=== PATIENT | male | born 1975 | race African-American/Black ===

== ENCOUNTER 2021-10-01 20:40 | Inpatient (IN) | payer OTHER ==
[~2021-10-01] VITALS: Ht 175.3 cm; Wt 111.4 kg
[2021-10-01 22:16] LABS: Urine Bacteria NONE SEEN /hpf (None Seen); Urine Blood Negative /uL (Negative); Urine Specific Gravity 1.028 (1.001-1.035); Urine WBC <1 /hpf (0 - 3)
[2021-10-01 22:45] LABS: Magnesium 2.4 mg/dL (1.6-2.6)
[2021-10-01] MEDS ORDERED: fentaNYL CITRATE 100 MCG/2 ML VL IV ONE (23:00)
[2021-10-01] MEDS ORDERED: ONDANSETRON HCL 4 MG/2 ML VIAL IV ONE (23:00)
[2021-10-01 23:07] LABS: White Blood Cell 9.3 10^3/uL (4.4-10.8)
[2021-10-01 23:08] LABS: Basophils % (auto) 1.6 % (0.0-2.0); Eosinophils % (auto) 0.5 % (0.0-7.0); Lymphocytes % (auto) 8.2 % (10.0-50.0); Monocytes % (auto) 4.8 % (0.0-12.0); Neutrophils % (auto) 84.9 % (37.0-80.0)
[2021-10-01 23:09] LABS: Basophils # (auto) 0.2 10 ^3/uL (0-0.2); Eosinophils # (auto) 0.1 10 ^3/uL (0-0.8); Hematocrit 37.6 % (41.0-53.0); Hemoglobin 12.6 g/dL (13.5-17.5); Lymphocytes # (auto) 0.8 10 ^3/uL (0.4-5.4); Mean Corpuscular Volume 80.3 fL (80.0-100.0); Monocytes # (auto) 0.4 10 ^3/uL (0-1.3); Neutrophils # (auto) 7.8 10 ^3/uL (1.6-8.6); Red Blood Cells 4.68 10^6/uL (4.5-5.90)
[2021-10-01 23:10] LABS: Mean Corpuscular Hemoglobin 26.9 pg (28.0-32.0); Mean Corpuscular Hgb Conc. 33.5 g/dL (32.0-36.0); Red Cell Distribution Width 16.7 % (11.8-14.3)
[2021-10-02] MEDS ORDERED: DEXTROSE (50%) 50ML SYRG IV PRN ×2 (00:15→15:45)
[2021-10-02] MEDS ORDERED: ACETAMINOPHEN 325 MG TAB PO PRN (00:15)
[2021-10-02] MEDS ORDERED: ONDANSETRON HCL 4 MG/2 ML VIAL IV PRN (00:15)
[2021-10-02 00:29] LABS: BUN/Creatinine Ratio 9.1
[2021-10-02 00:30] LABS: Albumin 3.8 g/dL (3.4-5.0); Bilirubin, Total 1.2 mg/dL (0.2-1.0); Calcium 8.8 mg/dL (8.5-10.1); Total Protein 8.3 g/dL (6.4-8.2)
[2021-10-02 00:34] LABS: Potassium 5.7 mmol/L (3.5-5.1)
[2021-10-02] MEDS: HYDROcodone-ACET 5/325MG TAB PO PRN ×2 (00:34→17:25)
[2021-10-02] MEDS: SODIUM CHLORIDE 0.9% 1,000 ML IV SCH ×2 (00:34→08:03)
[2021-10-02] MEDS ORDERED: SODIUM BICARBONATE 8.4% INJ 50ML SYRINGE IV ONE (00:45)
[2021-10-02] MEDS ORDERED: SODIUM ZIRCONIUM CYCL 10 GM PAK PO ONE (00:45)
[2021-10-02] MEDS ORDERED: InsuLIN REG 1unit/0.01ml Soln (100units/ml) IV ONE (00:45)
[2021-10-02] MEDS ORDERED: MORPHINE SULFATE INJ 2 MG/ml SYRG IV PRN (01:15)
[2021-10-02] MEDS ORDERED: NITROGLYCERIN 0.4 MG SL TAB SL PRN (01:15)
[2021-10-02 04:21] VITALS: BP 143/85
[2021-10-02] MEDS: ACCU-CHEK COMFORT CURVE STRIP VI SCH ×4 (04:33→16:00)
[2021-10-02] MEDS: InsuLIN REG 1unit/0.01ml Soln (100units/ml) SC SCH ×4 (04:34→16:20)
[2021-10-02] MEDS: MORPHINE SULFATE INJ 2 MG/ml SYRG IV PRN ×2 (04:57→12:20)
[2021-10-02 08:00] VITALS: BP 122/77
[2021-10-02 09:12] LABS: Basophils # (auto) 0.1 10 ^3/uL (0-0.2); Basophils % (auto) 0.6 % (0.0-2.0); Eosinophils # (auto) 0 10 ^3/uL (0-0.8); Eosinophils % (auto) 0.1 % (0.0-7.0); Hematocrit 36.9 % (41.0-53.0); Hemoglobin 13.4 g/dL (13.5-17.5); Lymphocytes # (auto) 0.8 10 ^3/uL (0.4-5.4); Lymphocytes % (auto) 7.9 % (10.0-50.0); Mean Corpuscular Hemoglobin 28.7 pg (28.0-32.0); Mean Corpuscular Hgb Conc. 36.4 g/dL (32.0-36.0); Mean Corpuscular Volume 78.8 fL (80.0-100.0); Monocytes # (auto) 0.4 10 ^3/uL (0-1.3); Monocytes % (auto) 4.3 % (0.0-12.0); Neutrophils # (auto) 8.5 10 ^3/uL (1.6-8.6); Neutrophils % (auto) 87.1 % (37.0-80.0); Nucleated Red Blood Cells % 0.1 %; Red Blood Cells 4.68 10^6/uL (4.5-5.90); Red Cell Distribution Width 16.3 % (11.8-14.3); White Blood Cell 9.7 10^3/uL (4.4-10.8)
[2021-10-02 09:30] LABS: Albumin 3.4 g/dL (3.4-5.0); Calcium 8.5 mg/dL (8.5-10.1); Potassium 4.2 mmol/L (3.5-5.1)
[2021-10-02 09:35] LABS: Bilirubin, Total 1.5 mg/dL (0.2-1.0)
[2021-10-02 10:18] LABS: BUN/Creatinine Ratio 10.3
[2021-10-02 10:24] LABS: Total Protein 7.7 g/dL (6.4-8.2)
[2021-10-02 12:00] VITALS: BP 133/81
[2021-10-02] MEDS ORDERED: LACTATED RINGER'S 1,000 ML IV SCH (15:30)
[2021-10-02 16:00] VITALS: BP 126/81
[2021-10-02] MEDS: LACTATED RINGER'S 1,000 ML IV SCH ×2 (16:00→18:38)
[2021-10-02] MEDS: INSULIN LANTUS (GLARGINE) 1 /0.01ml (100units/ml) SC SCH (21:32)
[2021-10-02 22:00] VITALS: BP 144/65
[2021-10-03] MEDS: ACCU-CHEK COMFORT CURVE STRIP VI SCH ×5 (00:46→23:23)
[2021-10-03] MEDS: InsuLIN REG 1unit/0.01ml Soln (100units/ml) SC SCH ×5 (00:54→23:28)
[2021-10-03 04:00] VITALS: BP 106/68
[2021-10-03] MEDS: LACTATED RINGER'S 1,000 ML IV SCH ×5 (05:20→21:58)
[2021-10-03 05:42] LABS: Hematocrit 35.4 % (41.0-53.0); Hemoglobin 12.5 g/dL (13.5-17.5); Mean Corpuscular Hemoglobin 27.8 pg (28.0-32.0); Mean Corpuscular Hgb Conc. 35.4 g/dL (32.0-36.0); Mean Corpuscular Volume 78.5 fL (80.0-100.0); Red Blood Cells 4.51 10^6/uL (4.5-5.90); Red Cell Distribution Width 16.8 % (11.8-14.3); White Blood Cell 9.7 10^3/uL (4.4-10.8)
[2021-10-03 05:49] LABS: Albumin 3.2 g/dL (3.4-5.0); Calcium 9.2 mg/dL (8.5-10.1); Potassium 3.6 mmol/L (3.5-5.1)
[2021-10-03 05:54] LABS: Total Protein 7.4 g/dL (6.4-8.2)
[2021-10-03] MEDS: HYDROcodone-ACET 5/325MG TAB PO PRN ×2 (06:21→11:58)
[2021-10-03 06:26] LABS: Basophils % (manual) 0 (0.0-2.0); Blast Cells 0; Eosinophils % (manual) 0 (0-7); Myelocytes % 0; Promyelocytes % 0; Reactive Lymphocytes 0
[2021-10-03 08:00] VITALS: BP 124/74
[2021-10-03 09:00] VITALS: BP 124/74
[2021-10-03 13:00] VITALS: BP 105/51
[2021-10-03 13:05] LABS: Band Neutrophils % (manual) 4; Lymphocytes % (manual) 11 (10.0-50.0); Metamyelocytes % 1; Monocytes % (manual) 8 (0-12)
[2021-10-03] MEDS ORDERED: PANTOPRAZOLE 40 MG/10 ML VIAL INJ IV ONE (14:15)
[2021-10-03 17:00] VITALS: BP 130/81
[2021-10-03] MEDS: INSULIN LANTUS (GLARGINE) 1 /0.01ml (100units/ml) SC SCH (21:59)
[2021-10-03 22:00] VITALS: BP 122/78
[2021-10-04 05:00] VITALS: BP 115/69
[2021-10-04] MEDS: ACCU-CHEK COMFORT CURVE STRIP VI SCH ×4 (05:45→22:57)
[2021-10-04] MEDS: InsuLIN REG 1unit/0.01ml Soln (100units/ml) SC SCH ×4 (05:51→22:57)
[2021-10-04 06:03] LABS: Potassium 3.2 mmol/L (3.5-5.1)
[2021-10-04 06:10] LABS: BUN/Creatinine Ratio 9.1; Calcium 9.1 mg/dL (8.5-10.1)
[2021-10-04] MEDS: LACTATED RINGER'S 1,000 ML IV SCH ×3 (06:35→22:56)
[2021-10-04 08:20] VITALS: BP 99/62
[2021-10-04 09:00] VITALS: BP 99/62
[2021-10-04] MEDS: PANTOPRAZOLE 40 MG/10 ML VIAL INJ IV SCH (09:46)
[2021-10-04] MEDS: HYDROcodone-ACET 5/325MG TAB PO PRN (10:00)
[2021-10-04] MEDS ORDERED: POTASSIUM CHLORIDE 40 MEQ, LIDOCAINE 1% (LOCAL ANESTH.) 4 ML in SODIUM CHL 0.9% 250 ML IV ONE (12:30)
[2021-10-04] MEDS ORDERED: PANTOPRAZOLE 40 MG/10 ML VIAL INJ IV ONE (12:30)
[2021-10-04] MEDS ORDERED: KETOROLAC TROMETH 30 MG/ML 1ML VIAL IV ONE (12:30)
[2021-10-04 13:00] VITALS: BP 115/70
[2021-10-04 16:59] VITALS: BP 123/89
[2021-10-04 22:00] VITALS: BP 143/87
[2021-10-04] MEDS: INSULIN LANTUS (GLARGINE) 1 /0.01ml (100units/ml) SC SCH (22:57)
[2021-10-05] MEDS: HYDROcodone-ACET 5/325MG TAB PO PRN (02:29)
[2021-10-05 05:00] VITALS: BP 101/60
[2021-10-05] MEDS: ACCU-CHEK COMFORT CURVE STRIP VI SCH ×2 (06:36→11:10)
[2021-10-05 06:37] LABS: Chloride 105 mmol/L (98-107); Potassium 3.7 mmol/L (3.5-5.1); Sodium 138 mmol/L (136-145)
[2021-10-05 06:41] LABS: Anion Gap 11 (5-15); BUN/Creatinine Ratio 10.3; Blood Urea Nitrogen 10 mg/dL (7-18); Calcium 8.6 mg/dL (8.5-10.1); Carbon Dioxide 22 mmol/L (21-32); GFR African American 108 mL/min; GFR Non-African American 89 mL/min; Glucose 144 mg/dL (74-106)
[2021-10-05] MEDS: InsuLIN REG 1unit/0.01ml Soln (100units/ml) SC SCH ×2 (06:43→11:10)
[2021-10-05] MEDS: LACTATED RINGER'S 1,000 ML IV SCH (08:30)
[2021-10-05 09:00] VITALS: BP 121/74
[2021-10-05 09:04] LABS: Basophils # (auto) 0.1 10 ^3/uL (0-0.2); Basophils % (auto) 2.4 % (0.0-2.0); Eosinophils # (auto) 0.1 10 ^3/uL (0-0.8); Hemoglobin 11.4 g/dL (13.5-17.5); Lymphocytes % (auto) 16.6 % (10.0-50.0); Mean Corpuscular Hemoglobin 27.2 pg (28.0-32.0); Mean Corpuscular Hgb Conc. 34.5 g/dL (32.0-36.0); Mean Corpuscular Volume 78.9 fL (80.0-100.0); Monocytes # (auto) 0.5 10 ^3/uL (0-1.3); Monocytes % (auto) 8.3 % (0.0-12.0); Neutrophils # (auto) 4.3 10 ^3/uL (1.6-8.6); Neutrophils % (auto) 70.7 % (37.0-80.0); Nucleated Red Blood Cells % 0.1 %; Red Blood Cells 4.18 10^6/uL (4.5-5.90); Red Cell Distribution Width 16.3 % (11.8-14.3); White Blood Cell 6.1 10^3/uL (4.4-10.8)
[2021-10-05] MEDS ORDERED: PANTOPRAZOLE 40 MG/10 ML VIAL INJ IV SCH (10:00)
[2021-10-05] MEDS: PANTOPRAZOLE 40 MG/10 ML VIAL INJ IV SCH (10:06)
[2021-10-05] MEDS ORDERED: PANT40TA2 PO (11:29)
[2021-10-05 13:00] VITALS: BP 128/80
== END 2021-10-05 17:15 | disposition home or self-care (01) | DRG 438 ==
LOC: ER 20:40 → OVERFLOW 10-02 01:07 → WEST WING 10-02 03:39
PROVIDERS: ADMIT Nurse Practitioner Family; ATTEND Internal Medicine
DX: K85.90 Acute pancreatitis without necrosis or infection, unspecified (principal); N17.0 Acute kidney failure with tubular necrosis; K29.70 Gastritis, unspecified, without bleeding; E87.5 Hyperkalemia; E66.9 Obesity, unspecified; R16.0 Hepatomegaly, not elsewhere classified; Z20.822 Contact with and (suspected) exposure to COVID-19; E11.65 Type 2 diabetes mellitus with hyperglycemia; K86.1 Other chronic pancreatitis; Z90.49 Acquired absence of other specified parts of digestive tract; Z68.36 Body mass index [BMI] 36.0-36.9, adult; Z79.899 Other long term (current) drug therapy; Z88.0 Allergy status to penicillin; Z91.041 Radiographic dye allergy status; Z91.19 Patient's noncompliance with other medical treatment and regimen
CPT/HCPCS: 36415; 74176; 76705; 80048; 80053; 80061; 81001; 82962; 83036; 83690; 83735; 84484; 85007; 85025; 85027; 96374; 96375; C9113; G0378; J1815; J1885; J2001; J2405

== ENCOUNTER 2022-06-04 12:15 | Inpatient (IN) | payer OTHER ==
[~2022-06-04] VITALS: Ht 180.3 cm; Wt 107.4 kg
[~2022-06-04 12:15] MED LIST: PANT40TA2 PO
[2022-06-04 13:16] LABS: Urine Bacteria NONE SEEN /hpf (None Seen); Urine Blood Negative /uL (Negative); Urine Specific Gravity 1.028 (1.001-1.035); Urine WBC <1 /hpf (0 - 3)
[2022-06-04 14:33] LABS: Basophils # (auto) 0 10 ^3/uL (0-0.2); Basophils % (auto) 0.8 % (0.0-2.0); Eosinophils # (auto) 0 10 ^3/uL (0-0.8); Eosinophils % (auto) 0.8 % (0.0-7.0); Hematocrit 38.1 % (41.0-53.0); Lymphocytes # (auto) 1.3 10 ^3/uL (0.4-5.4); Lymphocytes % (auto) 27.2 % (10.0-50.0); Mean Corpuscular Hgb Conc. 34.1 g/dL (32.0-36.0); Monocytes # (auto) 0.3 10 ^3/uL (0-1.3); Monocytes % (auto) 6.2 % (0.0-12.0); Neutrophils # (auto) 3.2 10 ^3/uL (1.6-8.6); Nucleated Red Blood Cells % 0.4 %; Red Blood Cells 4.83 10^6/uL (4.5-5.90); Red Cell Distribution Width 17.1 % (11.8-14.3); White Blood Cell 4.9 10^3/uL (4.4-10.8)
[2022-06-04 16:05] LABS: Albumin 3.4 g/dL (3.4-5.0); Blood Urea Nitrogen 11 mg/dL (7-18)
[2022-06-04 16:08] LABS: Alkaline Phosphatase 108 U/L (45-117); Total Protein 8.4 g/dL (6.4-8.2)
[2022-06-04 16:20] LABS: Sodium 130 mmol/L (136-145)
[2022-06-04 16:23] LABS: Anion Gap 12 (5-15); BUN/Creatinine Ratio 9.5; Carbon Dioxide 23 mmol/L (21-32); Chloride 95 mmol/L (98-107); GFR African American 88 mL/min; GFR Non-African American 72 mL/min
[2022-06-04 16:27] LABS: Lipase 1486.9 U/L (73-393)
[2022-06-04 16:29] LABS: Bilirubin, Total 0.7 mg/dL (0.2-1.0)
[2022-06-04 16:32] LABS: Glucose 454 mg/dL (74-106)
[2022-06-04] MEDS ORDERED: MORPHINE SULFATE 4 MG/ML SYR/VIAL IV ONE (17:00)
[2022-06-04] MEDS ORDERED: ONDANSETRON HCL 4 MG/2 ML VIAL IV ONE (17:00)
[2022-06-04] MEDS ORDERED: SODIUM CHLORIDE 0.9% 2,000 ML IV ONE (17:00)
[2022-06-04] MEDS ORDERED: InsuLIN R (HUMAN) 100 UNITS in SODIUM CHL 0.9% 99 ML IV SCH (18:00)
[2022-06-04] MEDS ORDERED: LORazepam 0.5 MG TAB PO PRN (18:00)
[2022-06-04] MEDS ORDERED: DOCUSATE SOD 100 MG CAP PO PRN (18:00)
[2022-06-04] MEDS ORDERED: DEXTROSE (50%) 50ML SYRG IV PRN (18:00)
[2022-06-04] MEDS ORDERED: ACETAMINOPHEN 325 MG TAB PO PRN (18:00)
[2022-06-04] MEDS ORDERED: TEMAZEPAM 15 MG CAP PO PRN (18:00)
[2022-06-04] MEDS: ACCU-CHEK COMFORT CURVE STRIP VI SCH ×4 (19:51→22:39)
[2022-06-04 20:19] LABS: Anion Gap 16 (5-15); BUN/Creatinine Ratio 12.3; Blood Urea Nitrogen 13 mg/dL (7-18); Calcium 8.8 mg/dL (8.5-10.1); Carbon Dioxide 16 mmol/L (21-32); Chloride 99 mmol/L (98-107); GFR African American 97 mL/min; GFR Non-African American 80 mL/min; Glucose 322 mg/dL (74-106); Sodium 131 mmol/L (136-145)
[2022-06-04 20:25] LABS: Potassium 7.6 mmol/L (3.5-5.1)
[2022-06-04] MEDS ORDERED: SODIUM CHLORIDE 0.9% 1,000 ML IV SCH (22:00)
[2022-06-04] MEDS ORDERED: FUROSEMIDE 20 MG/2 ML VIAL IV ONE (22:15)
[2022-06-04] MEDS ORDERED: SODIUM BICARBONATE 8.4 % INJ 50ML VIAL IV ONE (22:15)
[2022-06-04] MEDS ORDERED: CALCIUM GLUC 1,000mg/50ml-NS 50 ML IV ONE (22:15)
[2022-06-04] MEDS ORDERED: SODIUM ZIRCONIUM CYCL 10 GM PAK PO ONE (22:15)
[2022-06-05] VITALS (47 sets, daily range): BP systolic 79–153; BP diastolic 30–102
[2022-06-05] MEDS: ACCU-CHEK COMFORT CURVE STRIP VI SCH ×13 (01:31→20:40)
[2022-06-05] MEDS: MORPHINE SULFATE INJ 2 MG/ml SYRG IV PRN ×5 (01:32→22:10)
[2022-06-05] MEDS: ONDANSETRON HCL 4 MG/2 ML VIAL IV PRN ×4 (01:33→18:07)
[2022-06-05] MEDS ORDERED: InsuLIN R (HUMAN) 100 UNITS in SODIUM CHL 0.9% 99 ML IV SCH ×2 (02:00→04:30)
[2022-06-05 02:46] LABS: BUN/Creatinine Ratio 12.4; Potassium 4.5 mmol/L (3.5-5.1)
[2022-06-05 06:15] LABS: Basophils # (auto) 0 10 ^3/uL (0-0.2); Eosinophils # (auto) 0 10 ^3/uL (0-0.8); Lymphocytes # (auto) 0.6 10 ^3/uL (0.4-5.4); Mean Corpuscular Hemoglobin 28.3 pg (28.0-32.0); Mean Corpuscular Hgb Conc. 35.8 g/dL (32.0-36.0); Monocytes # (auto) 0.2 10 ^3/uL (0-1.3); White Blood Cell 2.8 10^3/uL (4.4-10.8)
[2022-06-05 06:19] LABS: Basophils % (auto) 0.2 % (0.0-2.0); Eosinophils % (auto) 0.1 % (0.0-7.0); Hematocrit 50.1 % (41.0-53.0); Hemoglobin 17.9 g/dL (13.5-17.5); Lymphocytes % (auto) 20.8 % (10.0-50.0); Mean Corpuscular Volume 79.1 fL (80.0-100.0); Monocytes % (auto) 7.1 % (0.0-12.0); Neutrophils % (auto) 71.8 % (37.0-80.0); Nucleated Red Blood Cells % 0.8 %; Red Blood Cells 6.33 10^6/uL (4.5-5.90); Red Cell Distribution Width 17.4 % (11.8-14.3)
[2022-06-05] MEDS ORDERED: InsuLIN REG 1unit/0.01ml Soln (100units/ml) SC SCH (07:00)
[2022-06-05 09:47] LABS: Anion Gap 9 (5-15); BUN/Creatinine Ratio 10.8; Blood Urea Nitrogen 15 mg/dL (7-18); Calcium 7.5 mg/dL (8.5-10.1); Carbon Dioxide 18 mmol/L (21-32); Chloride 113 mmol/L (98-107); GFR African American 71 mL/min; GFR Non-African American 59 mL/min; Glucose 171 mg/dL (74-106); Sodium 140 mmol/L (136-145)
[2022-06-05 09:48] LABS: Potassium 5.2 mmol/L (3.5-5.1)
[2022-06-05] MEDS ORDERED: INSULIN LANTUS (GLARGINE) 1 /0.01ml (100units/ml) SC SCH (10:00)
[2022-06-05] MEDS ORDERED: SODIUM CHLORIDE 0.9% 1,000 ML IV ONE (10:45)
[2022-06-05] MEDS ORDERED: METF-370 PO (12:15)
[2022-06-05 12:46] LABS: Anion Gap 12 (5-15); BUN/Creatinine Ratio 7.6; Blood Urea Nitrogen 18 mg/dL (7-18); Calcium 7.3 mg/dL (8.5-10.1); Carbon Dioxide 17 mmol/L (21-32); Chloride 111 mmol/L (98-107); GFR African American 38 mL/min; GFR Non-African American 32 mL/min; Glucose 137 mg/dL (74-106); Potassium 5.3 mmol/L (3.5-5.1); Sodium 140 mmol/L (136-145)
[2022-06-05 12:54] LABS: Lipase 3835 U/L (73-393)
[2022-06-05 14:17] LABS: Calcium 7.2 mg/dL (8.5-10.1); Potassium 5.4 mmol/L (3.5-5.1)
[2022-06-05 14:21] LABS: Bilirubin, Total 0.9 mg/dL (0.2-1.0); Total Protein 7.6 g/dL (6.4-8.2)
[2022-06-05 14:42] LABS: BUN/Creatinine Ratio 7.4
[2022-06-05] MEDS: HYDROcodone-ACET 5/325MG TAB PO PRN (16:48)
[2022-06-05] MEDS ORDERED: DEXTROSE (50%) 50ML SYRG IV PRN (17:45)
[2022-06-05] MEDS: InsuLIN REG 1unit/0.01ml Soln (100units/ml) SC SCH (20:41)
[2022-06-06] VITALS (47 sets, daily range): BP systolic 95–161; BP diastolic 41–104
[2022-06-06] MEDS: ACCU-CHEK COMFORT CURVE STRIP VI SCH ×6 (00:16→20:00)
[2022-06-06] MEDS: InsuLIN REG 1unit/0.01ml Soln (100units/ml) SC SCH ×6 (00:17→20:01)
[2022-06-06] MEDS: MORPHINE SULFATE INJ 2 MG/ml SYRG IV PRN ×4 (02:17→22:53)
[2022-06-06 06:05] LABS: Basophils # (auto) 0 10 ^3/uL (0-0.2); Eosinophils # (auto) 0 10 ^3/uL (0-0.8); Hemoglobin 14.7 g/dL (13.5-17.5); Lymphocytes # (auto) 0.8 10 ^3/uL (0.4-5.4); Lymphocytes % (auto) 11.5 % (10.0-50.0)
[2022-06-06 06:07] LABS: Basophils % (auto) 0.3 % (0.0-2.0); Hematocrit 44.1 % (41.0-53.0); Mean Corpuscular Hemoglobin 27.1 pg (28.0-32.0); Mean Corpuscular Hgb Conc. 33.4 g/dL (32.0-36.0); Mean Corpuscular Volume 81.1 fL (80.0-100.0); Monocytes # (auto) 0.5 10 ^3/uL (0-1.3); Monocytes % (auto) 7.3 % (0.0-12.0); Neutrophils # (auto) 5.9 10 ^3/uL (1.6-8.6); Neutrophils % (auto) 80.9 % (37.0-80.0); Nucleated Red Blood Cells % 0.1 %; Red Blood Cells 5.43 10^6/uL (4.5-5.90); Red Cell Distribution Width 17.8 % (11.8-14.3); White Blood Cell 7.3 10^3/uL (4.4-10.8)
[2022-06-06 06:18] LABS: Calcium 6.5 mg/dL (8.5-10.1); Potassium 4.9 mmol/L (3.5-5.1)
[2022-06-06 06:21] LABS: BUN/Creatinine Ratio 10.6
[2022-06-06] MEDS ORDERED: INSULIN LANTUS (GLARGINE) 1 /0.01ml (100units/ml) SC SCH (10:00)
[2022-06-06] MEDS: ONDANSETRON HCL 4 MG/2 ML VIAL IV PRN ×3 (10:54→22:52)
[2022-06-06] MEDS ORDERED: SODIUM CHLORIDE 0.9% 1,000 ML IV SCH (11:45)
[2022-06-06] MEDS ORDERED: DEXTROSE (50%) 50ML SYRG IV PRN (11:45)
[2022-06-06] MEDS: SODIUM BICARBONATE 50ML VIAL 50 ML in SOD CHL 0.45% 1,000 ML IV SCH ×2 (14:11→21:15)
[2022-06-06] MEDS: INSULIN LANTUS (GLARGINE) 1 /0.01ml (100units/ml) SC SCH (22:46)
[2022-06-07] VITALS (29 sets, daily range): BP systolic 104–144; BP diastolic 59–107
[2022-06-07] MEDS: ACCU-CHEK COMFORT CURVE STRIP VI SCH ×7 (03:27→23:05)
[2022-06-07] MEDS: InsuLIN REG 1unit/0.01ml Soln (100units/ml) SC SCH ×7 (03:29→23:09)
[2022-06-07] MEDS: SODIUM BICARBONATE 50ML VIAL 50 ML in SOD CHL 0.45% 1,000 ML IV SCH ×3 (04:38→18:32)
[2022-06-07 05:35] LABS: Basophils # (auto) 0 10 ^3/uL (0-0.2); Basophils % (auto) 0.2 % (0.0-2.0); Eosinophils # (auto) 0 10 ^3/uL (0-0.8); Eosinophils % (auto) 0.7 % (0.0-7.0); Hematocrit 34.3 % (41.0-53.0); Lymphocytes # (auto) 0.7 10 ^3/uL (0.4-5.4); Mean Corpuscular Hemoglobin 26.3 pg (28.0-32.0); Mean Corpuscular Hgb Conc. 32.1 g/dL (32.0-36.0); Monocytes # (auto) 0.5 10 ^3/uL (0-1.3); Monocytes % (auto) 8.7 % (0.0-12.0); Neutrophils # (auto) 4.3 10 ^3/uL (1.6-8.6); Neutrophils % (auto) 78.4 % (37.0-80.0); Nucleated Red Blood Cells % 0.1 %; Red Blood Cells 4.18 10^6/uL (4.5-5.90); Red Cell Distribution Width 17.6 % (11.8-14.3); White Blood Cell 5.5 10^3/uL (4.4-10.8)
[2022-06-07 05:55] LABS: Calcium 6.8 mg/dL (8.5-10.1); Potassium 3.6 mmol/L (3.5-5.1)
[2022-06-07 06:00] LABS: BUN/Creatinine Ratio 10.7
[2022-06-07 06:12] LABS: Protein, Urine 119.1 mg/dL (0.0-11.9)
[2022-06-07] MEDS: INSULIN LANTUS (GLARGINE) 1 /0.01ml (100units/ml) SC SCH ×2 (06:31→23:08)
[2022-06-07] MEDS: ONDANSETRON HCL 4 MG/2 ML VIAL IV PRN (06:45)
[2022-06-07] MEDS: MORPHINE SULFATE INJ 2 MG/ml SYRG IV PRN ×3 (06:46→20:01)
[2022-06-07 11:03] LABS: Urine Bacteria FEW /hpf (None Seen); Urine Blood 1+ /uL (Negative); Urine Specific Gravity 1.007 (1.001-1.035); Urine WBC 2 /hpf (0 - 3)
[2022-06-07 11:16] LABS: Creatinine, Urine 104 mg/dL (30.0-125.0)
[2022-06-07] MEDS: DOPamine 1600MCG/ML D5W 250 ML IV SCH (13:48)
[2022-06-08] MEDS: SODIUM BICARBONATE 50ML VIAL 50 ML in SOD CHL 0.45% 1,000 ML IV SCH ×3 (01:32→21:43)
[2022-06-08] MEDS: InsuLIN REG 1unit/0.01ml Soln (100units/ml) SC SCH ×6 (03:43→23:07)
[2022-06-08] MEDS: ONDANSETRON HCL 4 MG/2 ML VIAL IV PRN ×2 (03:52→23:08)
[2022-06-08] MEDS: MORPHINE SULFATE INJ 2 MG/ml SYRG IV PRN ×2 (03:53→23:08)
[2022-06-08] MEDS: ACCU-CHEK COMFORT CURVE STRIP VI SCH ×6 (04:02→23:07)
[2022-06-08 05:00] VITALS: BP 121/79
[2022-06-08 06:16] LABS: Basophils # (auto) 0 10 ^3/uL (0-0.2); Eosinophils # (auto) 0 10 ^3/uL (0-0.8); Eosinophils % (auto) 0.6 % (0.0-7.0); Lymphocytes # (auto) 0.5 10 ^3/uL (0.4-5.4); Monocytes # (auto) 0.6 10 ^3/uL (0-1.3)
[2022-06-08] MEDS: INSULIN LANTUS (GLARGINE) 1 /0.01ml (100units/ml) SC SCH ×2 (06:16→23:06)
[2022-06-08 06:18] LABS: Basophils % (auto) 0.1 % (0.0-2.0); Hematocrit 29.8 % (41.0-53.0); Hemoglobin 10.2 g/dL (13.5-17.5); Lymphocytes % (auto) 7.1 % (10.0-50.0); Mean Corpuscular Hemoglobin 27.5 pg (28.0-32.0); Mean Corpuscular Hgb Conc. 34.3 g/dL (32.0-36.0); Mean Corpuscular Volume 80.2 fL (80.0-100.0); Monocytes % (auto) 9.3 % (0.0-12.0); Neutrophils # (auto) 5.6 10 ^3/uL (1.6-8.6); Neutrophils % (auto) 82.9 % (37.0-80.0); Red Blood Cells 3.72 10^6/uL (4.5-5.90); Red Cell Distribution Width 17.3 % (11.8-14.3); White Blood Cell 6.8 10^3/uL (4.4-10.8)
[2022-06-08 06:44] LABS: BUN/Creatinine Ratio 10.3; Calcium 6.8 mg/dL (8.5-10.1)
[2022-06-08 07:04] LABS: Potassium 2.9 mmol/L (3.5-5.1)
[2022-06-08] MEDS ORDERED: POTASSIUM CHL 20 Meq TABLET PO ONE (07:30)
[2022-06-08 09:24] VITALS: BP 99/55
[2022-06-08] MEDS: DOPamine 1600MCG/ML D5W 250 ML IV SCH ×2 (11:00→19:57)
[2022-06-08 13:00] VITALS: BP 116/72
[2022-06-08] MEDS ORDERED: POTASSIUM CHL 20MEQ/100ML 100 ML IV SCH (13:00)
[2022-06-08] MEDS: POTASSIUM CHL 20MEQ/100ML 100 ML IV SCH ×2 (13:32→16:09)
[2022-06-08] MEDS ORDERED: ENOXAPARIN SOD 30 MG/0.3 ML SYRINGE SC ONE (16:00)
[2022-06-08 16:46] VITALS: BP 118/70
[2022-06-08 22:00] VITALS: BP 121/59
[2022-06-09] MEDS: InsuLIN REG 1unit/0.01ml Soln (100units/ml) SC SCH ×5 (03:54→22:44)
[2022-06-09] MEDS: ACCU-CHEK COMFORT CURVE STRIP VI SCH ×5 (03:54→22:00)
[2022-06-09] MEDS: SODIUM BICARBONATE 50ML VIAL 50 ML in SOD CHL 0.45% 1,000 ML IV SCH ×2 (04:05→12:39)
[2022-06-09 05:00] VITALS: BP 121/67
[2022-06-09 05:48] LABS: BUN/Creatinine Ratio 10.3; Potassium 3.1 mmol/L (3.5-5.1)
[2022-06-09 05:51] LABS: Basophils # (auto) 0 10 ^3/uL (0-0.2); Basophils % (auto) 0.1 % (0.0-2.0); Eosinophils # (auto) 0 10 ^3/uL (0-0.8); Eosinophils % (auto) 0.3 % (0.0-7.0); Hematocrit 30.3 % (41.0-53.0); Hemoglobin 10.3 g/dL (13.5-17.5); Lymphocytes # (auto) 0.4 10 ^3/uL (0.4-5.4); Lymphocytes % (auto) 5.6 % (10.0-50.0); Mean Corpuscular Hemoglobin 27.2 pg (28.0-32.0); Monocytes # (auto) 1.1 10 ^3/uL (0-1.3); Neutrophils # (auto) 5.9 10 ^3/uL (1.6-8.6); Red Blood Cells 3.79 10^6/uL (4.5-5.90); White Blood Cell 7.5 10^3/uL (4.4-10.8)
[2022-06-09] MEDS: INSULIN LANTUS (GLARGINE) 1 /0.01ml (100units/ml) SC SCH (06:29)
[2022-06-09] MEDS: ONDANSETRON HCL 4 MG/2 ML VIAL IV PRN (08:50)
[2022-06-09] MEDS: HYDROcodone-ACET 5/325MG TAB PO PRN (08:50)
[2022-06-09 09:00] VITALS: BP 128/60
[2022-06-09] MEDS: ENOXAPARIN SOD 30 MG/0.3 ML SYRINGE SC SCH (10:11)
[2022-06-09] MEDS ORDERED: DEXTROSE (50%) 50ML SYRG IV PRN (10:15)
[2022-06-09] MEDS: POTASSIUM CHL 20MEQ/100ML 100 ML IV SCH ×2 (12:32→16:55)
[2022-06-09 13:00] VITALS: BP 124/73
[2022-06-09] MEDS: BUMETANIDE INJECTION 12.5 MG in GIVE UN-DILUTED 0 ML IV SCH (14:40)
[2022-06-09 17:00] VITALS: BP 137/84
[2022-06-09 22:00] VITALS: BP 129/53
[2022-06-10] MEDS: SODIUM BICARBONATE 50ML VIAL 50 ML in SOD CHL 0.45% 1,000 ML IV SCH ×3 (00:38→15:04)
[2022-06-10] MEDS: HYDROcodone-ACET 5/325MG TAB PO PRN (00:40)
[2022-06-10] MEDS: ONDANSETRON HCL 4 MG/2 ML VIAL IV PRN (00:52)
[2022-06-10] MEDS: MORPHINE SULFATE INJ 2 MG/ml SYRG IV PRN (00:53)
[2022-06-10 05:00] VITALS: BP 110/60
[2022-06-10 05:44] LABS: Basophils # (auto) 0 10 ^3/uL (0-0.2); Eosinophils # (auto) 0 10 ^3/uL (0-0.8); Hemoglobin 10.6 g/dL (13.5-17.5)
[2022-06-10 05:48] LABS: Basophils % (auto) 0.2 % (0.0-2.0); Eosinophils % (auto) 0.5 % (0.0-7.0); Hematocrit 30.8 % (41.0-53.0); Lymphocytes # (auto) 0.7 10 ^3/uL (0.4-5.4); Lymphocytes % (auto) 9.3 % (10.0-50.0); Mean Corpuscular Hemoglobin 27.2 pg (28.0-32.0); Mean Corpuscular Hgb Conc. 34.5 g/dL (32.0-36.0); Mean Corpuscular Volume 78.9 fL (80.0-100.0); Monocytes # (auto) 1.2 10 ^3/uL (0-1.3); Monocytes % (auto) 17.2 % (0.0-12.0); Neutrophils # (auto) 5.2 10 ^3/uL (1.6-8.6); Neutrophils % (auto) 72.8 % (37.0-80.0); Red Cell Distribution Width 16.9 % (11.8-14.3); White Blood Cell 7.2 10^3/uL (4.4-10.8)
[2022-06-10 05:58] LABS: Calcium 7.7 mg/dL (8.5-10.1); Potassium 3.2 mmol/L (3.5-5.1)
[2022-06-10 06:00] LABS: BUN/Creatinine Ratio 10.2
[2022-06-10] MEDS: ACCU-CHEK COMFORT CURVE STRIP VI SCH ×4 (06:23→21:46)
[2022-06-10] MEDS: InsuLIN REG 1unit/0.01ml Soln (100units/ml) SC SCH ×4 (06:28→22:03)
[2022-06-10] MEDS: BUMETANIDE INJECTION 12.5 MG in GIVE UN-DILUTED 0 ML IV SCH (08:59)
[2022-06-10 09:00] VITALS: BP 117/82
[2022-06-10] MEDS: DOPamine 1600MCG/ML D5W 250 ML IV SCH (09:31)
[2022-06-10] MEDS: ENOXAPARIN SOD 30 MG/0.3 ML SYRINGE SC SCH (11:03)
[2022-06-10] MEDS: INSULIN LANTUS (GLARGINE) 1 /0.01ml (100units/ml) SC SCH (11:07)
[2022-06-10 13:00] VITALS: BP 136/86
[2022-06-10] MEDS: POTASSIUM CHL 20MEQ/100ML 100 ML IV SCH ×2 (13:17→18:04)
[2022-06-10 17:00] VITALS: BP 128/85
[2022-06-10 22:00] VITALS: BP 121/67
[2022-06-11 05:00] VITALS: BP 115/68
[2022-06-11] MEDS: SODIUM BICARBONATE 50ML VIAL 50 ML in SOD CHL 0.45% 1,000 ML IV SCH (06:15)
[2022-06-11] MEDS: ACCU-CHEK COMFORT CURVE STRIP VI SCH ×3 (06:43→18:21)
[2022-06-11] MEDS: InsuLIN REG 1unit/0.01ml Soln (100units/ml) SC SCH ×3 (06:43→18:21)
[2022-06-11] MEDS: HYDROcodone-ACET 5/325MG TAB PO PRN (06:54)
[2022-06-11 09:00] VITALS: BP 115/68
[2022-06-11 09:22] LABS: Albumin 1.9 g/dL (3.4-5.0); Calcium 8.2 mg/dL (8.5-10.1); Potassium 3.5 mmol/L (3.5-5.1)
[2022-06-11 09:28] LABS: BUN/Creatinine Ratio 10.7; Bilirubin, Total 0.5 mg/dL (0.2-1.0)
[2022-06-11] MEDS ORDERED: POTASSIUM EFFERVESENT TAB 25 MEQ PO ONE (10:15)
[2022-06-11] MEDS ORDERED: SODIUM CHLORIDE 0.9% 1,000 ML IV SCH (10:15)
[2022-06-11] MEDS: ENOXAPARIN SOD 30 MG/0.3 ML SYRINGE SC SCH (10:19)
[2022-06-11] MEDS: INSULIN LANTUS (GLARGINE) 1 /0.01ml (100units/ml) SC SCH (10:29)
[2022-06-11] MEDS: DOPamine 1600MCG/ML D5W 250 ML IV SCH (11:00)
[2022-06-11 13:00] VITALS: BP 130/79
[2022-06-11] MEDS ORDERED: NITROGLYCERIN 2% OINT 1GM PKG TD ONE (17:45)
== END 2022-06-11 18:55 | disposition home or self-care (01) | DRG 438 ==
LOC: ER 12:15 → TELE 18:03 → DOU IN ICU 06-05 08:30 → TELE-CENTR 06-07 21:24
PROVIDERS: ADMIT Hospitalist; ATTEND Internal Medicine Pulmonary Disease
DX: K85.90 Acute pancreatitis without necrosis or infection, unspecified (principal); E11.10 Type 2 diabetes mellitus with ketoacidosis without coma; N17.0 Acute kidney failure with tubular necrosis; E11.65 Type 2 diabetes mellitus with hyperglycemia; E11.22 Type 2 diabetes mellitus with diabetic chronic kidney disease; N18.9 Chronic kidney disease, unspecified; Z20.822 Contact with and (suspected) exposure to COVID-19; K21.9 Gastro-esophageal reflux disease without esophagitis; E87.6 Hypokalemia; F10.10 Alcohol abuse, uncomplicated; E87.5 Hyperkalemia; J45.909 Unspecified asthma, uncomplicated; K86.1 Other chronic pancreatitis; Z79.4 Long term (current) use of insulin; Z88.0 Allergy status to penicillin; Z91.041 Radiographic dye allergy status
CPT/HCPCS: 36415; 36600; 74176; 76775; 80048; 80053; 80061; 81001; 82150; 82306; 82570; 82805; 82962; 83036; 83690; 83970; 84100; 84133; 84156; 84300; 84484; 85025; 86301; 87081; 87086; 87426; 93005; 96372; G0378; J1815; J2405; J3480

== ENCOUNTER 2023-05-07 09:11 | Inpatient (IN) | payer OTHER ==
[~2023-05-07] VITALS: Ht 180.3 cm; Wt 113.2 kg
[~2023-05-07 09:11] MED LIST changes: +METF-370 PO
[2023-05-07] MEDS ORDERED: ONDANSETRON HCL 4 MG/2 ML VIAL IV ONE (10:00)
[2023-05-07] MEDS ORDERED: InsuLIN REG 1unit/0.01ml Soln (100units/ml) IV ONE (10:00)
[2023-05-07] MEDS ORDERED: PANTOPRAZOLE 40 MG/10 ML VIAL INJ IV ONE (10:00)
[2023-05-07] MEDS ORDERED: SODIUM CHLORIDE 0.9% 1,000 ML IVB ONE (10:00)
[2023-05-07] MEDS ORDERED: MORPHINE SULFATE 4 MG/ML SYR/VIAL IV ONE (10:00)
[2023-05-07 10:19] LABS: Base Excess -8.1 mmol/L (-2.0-2.0)
[2023-05-07 10:23] LABS: Urine Epithelial Cast None Seen /hpf (<5)
[2023-05-07 10:24] LABS: Basophils # (auto) 0 10 ^3/uL (0-0.2); Basophils % (auto) 0.2 % (0.0-2.0); Eosinophils # (auto) 0 10 ^3/uL (0-0.8); Lymphocytes # (auto) 0.9 10 ^3/uL (0.4-5.4)
[2023-05-07 10:25] LABS: Hematocrit 47.1 % (41.0-53.0); Lymphocytes % (auto) 8.5 % (10.0-50.0); Mean Corpuscular Hemoglobin 27.1 pg (28.0-32.0); Mean Corpuscular Hgb Conc. 33.9 g/dL (32.0-36.0); Mean Corpuscular Volume 79.8 fL (80.0-100.0); Monocytes # (auto) 0.7 10 ^3/uL (0-1.3); Monocytes % (auto) 6.4 % (0.0-12.0); Neutrophils # (auto) 9.3 10 ^3/uL (1.6-8.6); Neutrophils % (auto) 84.9 % (37.0-80.0); Nucleated Red Blood Cells % 0.1 %; Red Cell Distribution Width 18.4 % (11.8-14.3); White Blood Cell 10.9 10^3/uL (4.4-10.8)
[2023-05-07 10:35] LABS: Urine Bacteria NONE SEEN /hpf (None Seen); Urine Blood TRACE /uL (Negative); Urine Clarity Clear (Clear); Urine Protein, UAD 1+ (Negative); Urine Specific Gravity 1.018 (1.001-1.035); Urine Urobilinogen Normal (Negative); Urine WBC 4 /hpf (0 - 3)
[2023-05-07 10:36] LABS: Urine Color Straw (Yellow)
[2023-05-07] MEDS ORDERED: ONDANSETRON HCL 4 MG/2 ML VIAL IV PRN (13:00)
[2023-05-07] MEDS ORDERED: DEXTROSE (50%) 50ML SYRG IV PRN ×2 (13:00→15:15)
[2023-05-07] MEDS ORDERED: ACETAMINOPHEN 325 MG TAB PO PRN (13:00)
[2023-05-07 13:12] LABS: Chloride 99 mmol/L (98-107); Sodium 131 mmol/L (136-145)
[2023-05-07 13:15] LABS: Anion Gap 13 (5-15); Calcium 9.2 mg/dL (8.7-10.4); Carbon Dioxide 19 mmol/L (20-30)
[2023-05-07] MEDS: SODIUM CHLORIDE 0.9% 1,000 ML IV SCH ×2 (13:17→23:01)
[2023-05-07 13:20] LABS: BUN/Creatinine Ratio 11.7 (10.0-20.0); Blood Urea Nitrogen 21 mg/dL (9-23); Lipase 174 U/L (12-53)
[2023-05-07 13:21] LABS: Alkaline Phosphatase 76 U/L (46-116)
[2023-05-07 13:22] LABS: Alanine Aminotransferase 41 U/L (7-40); Albumin 4.7 g/dL (3.2-4.8); Bilirubin, Total 1.4 mg/dL (0.2-1.0); Total Protein 7.7 g/dL (5.7-8.2); Triglycerides > 1000 mg/dL (< 150)
[2023-05-07 13:24] LABS: Cholesterol 237 mg/dL (< 200); HDL Cholesterol 19 mg/dL (40-59)
[2023-05-07 13:47] LABS: Glucose 527 mg/dL (74-106); Potassium 5.6 mmol/L (3.5-5.1)
[2023-05-07 14:45] VITALS: PULSE 114; RESP 20; O2SAT 96
[2023-05-07] MEDS ORDERED: InsuLIN REG 1unit/0.01ml Soln (100units/ml) SC SCH ×2 (17:00→22:00)
[2023-05-07] MEDS: ACCU-CHEK COMFORT CURVE STRIP VI SCH ×4 (18:34→22:00)
[2023-05-07] MEDS: InsuLIN REG 1unit/0.01ml Soln (100units/ml) SC SCH (18:38)
[2023-05-07] MEDS: HYDROcodone-ACET 5/325MG TAB PO PRN ×2 (18:38→22:55)
[2023-05-07 21:30] VITALS: PULSE 112; RESP 22; O2SAT 98
[2023-05-07 21:45] LABS: Alanine Aminotransferase 35 U/L (7-40); Albumin 4.6 g/dL (3.2-4.8); Alkaline Phosphatase 72 U/L (46-116); Anion Gap 13 (5-15); Aspartate Aminotransferase 33 U/L (13-40); Bilirubin, Total 1.3 mg/dL (0.2-1.0); Blood Urea Nitrogen 24 mg/dL (9-23); Calcium 9.7 mg/dL (8.5-10.1); Carbon Dioxide 21 mmol/L (20-30); Chloride 100 mmol/L (98-107); Potassium 4.7 mmol/L (3.5-5.1); Sodium 134 mmol/L (136-145); Total Protein 7.6 g/dL (5.7-8.2)
[2023-05-07 21:50] LABS: Glucose 471 mg/dL (74-106)
[2023-05-07 23:09] VITALS: BP 112/82; PULSE 119; RESP 20; TEMP 100.2; O2SAT 95
[2023-05-08] VITALS (14 sets, daily range): BP systolic 94–129; BP diastolic 51–89; PULSE 87–104; RESP 16–25; TEMP 97.9–98.3; O2SAT 86–100
[2023-05-08] MEDS ORDERED: KETOROLAC TROMETH 30 MG/ML 1ML VIAL IV ONE ×2 (00:30→18:15)
[2023-05-08] MEDS: ACCU-CHEK COMFORT CURVE STRIP VI SCH ×8 (06:04→22:30)
[2023-05-08] MEDS: HYDROcodone-ACET 5/325MG TAB PO PRN ×2 (06:04→10:10)
[2023-05-08] MEDS: InsuLIN REG 1unit/0.01ml Soln (100units/ml) SC SCH ×3 (06:08→17:00)
[2023-05-08 06:10] LABS: Basophils # (auto) 0 10 ^3/uL (0-0.2); Eosinophils # (auto) 0 10 ^3/uL (0-0.8); Hemoglobin 12.8 g/dL (13.5-17.5); Neutrophils % (auto) 82.5 % (37.0-80.0)
[2023-05-08 06:14] LABS: Basophils % (auto) 0.4 % (0.0-2.0); Eosinophils % (auto) 0.3 % (0.0-7.0); Hematocrit 38.6 % (41.0-53.0); Lymphocytes # (auto) 0.7 10 ^3/uL (0.4-5.4); Lymphocytes % (auto) 8.9 % (10.0-50.0); Mean Corpuscular Hemoglobin 26.2 pg (28.0-32.0); Mean Corpuscular Hgb Conc. 33.2 g/dL (32.0-36.0); Mean Corpuscular Volume 78.9 fL (80.0-100.0); Monocytes # (auto) 0.7 10 ^3/uL (0-1.3); Monocytes % (auto) 7.9 % (0.0-12.0); Neutrophils # (auto) 6.8 10 ^3/uL (1.6-8.6); Red Blood Cells 4.89 10^6/uL (4.5-5.90); Red Cell Distribution Width 18.7 % (11.8-14.3); White Blood Cell 8.2 10^3/uL (4.4-10.8)
[2023-05-08 06:41] LABS: Alanine Aminotransferase 32 U/L (7-40); Alkaline Phosphatase 70 U/L (46-116); Anion Gap 10 (5-15); BUN/Creatinine Ratio 16.4 (10.0-20.0); Blood Urea Nitrogen 25 mg/dL (9-23); Calcium 9.7 mg/dL (8.5-10.1); Carbon Dioxide 25 mmol/L (20-30); Chloride 104 mmol/L (98-107); Potassium 4.4 mmol/L (3.5-5.1); Sodium 139 mmol/L (136-145)
[2023-05-08 06:42] LABS: Albumin 4.4 g/dL (3.2-4.8); Aspartate Aminotransferase 28 U/L (13-40)
[2023-05-08 06:43] LABS: Total Protein 7.3 g/dL (5.7-8.2)
[2023-05-08 07:09] LABS: Glucose 286 mg/dL (74-106)
[2023-05-08] MEDS: SODIUM CHLORIDE 0.9% 1,000 ML IV SCH ×2 (09:00→15:00)
[2023-05-08] MEDS: ENOXAPARIN SOD 30 MG/0.3 ML SYRINGE SC SCH (10:11)
[2023-05-08] MEDS ORDERED: INSULIN LANTUS (GLARGINE) 1 /0.01ml (100units/ml) SC ONE (10:45)
[2023-05-08] MEDS ORDERED: DEXTROSE (50%) 50ML SYRG IV PRN (10:45)
[2023-05-08] MEDS: D5W/SOD CHL 0.45% 1,000 ML IV SCH (19:38)
[2023-05-08] MEDS: INSULIN DRIP 100 UNIT/100ML 100 ML IV SCH ×3 (19:45→22:34)
[2023-05-08] MEDS: GEMFIBROZIL 600 MG TAB PO SCH (22:49)
[2023-05-09] VITALS (22 sets, daily range): BP systolic 106–129; BP diastolic 66–89; PULSE 81–103; RESP 14–24; TEMP 98.2–98.7; O2SAT 92–98
[2023-05-09] MEDS: ACCU-CHEK COMFORT CURVE STRIP VI SCH ×17 (00:05→22:31)
[2023-05-09] MEDS: INSULIN DRIP 100 UNIT/100ML 100 ML IV SCH ×5 (00:07→06:02)
[2023-05-09 04:10] LABS: Basophils # (auto) 0 10 ^3/uL (0-0.2); Eosinophils # (auto) 0.1 10 ^3/uL (0-0.8); Lymphocytes # (auto) 1.1 10 ^3/uL (0.4-5.4); Mean Corpuscular Hemoglobin 26.5 pg (28.0-32.0); Monocytes # (auto) 0.4 10 ^3/uL (0-1.3); Neutrophils # (auto) 5.2 10 ^3/uL (1.6-8.6); White Blood Cell 6.9 10^3/uL (4.4-10.8)
[2023-05-09 04:13] LABS: Basophils % (auto) 0.3 % (0.0-2.0); Eosinophils % (auto) 2.1 % (0.0-7.0); Hematocrit 34.9 % (41.0-53.0); Hemoglobin 11.4 g/dL (13.5-17.5); Mean Corpuscular Hgb Conc. 32.6 g/dL (32.0-36.0); Mean Corpuscular Volume 81.2 fL (80.0-100.0); Monocytes % (auto) 6.4 % (0.0-12.0); Neutrophils % (auto) 75.2 % (37.0-80.0); Red Cell Distribution Width 18.3 % (11.8-14.3)
[2023-05-09 04:27] LABS: Alanine Aminotransferase 22 U/L (7-40); Albumin 4.1 g/dL (3.2-4.8); Alkaline Phosphatase 64 U/L (46-116); Anion Gap 10 (5-15); Aspartate Aminotransferase 22 U/L (13-40); BUN/Creatinine Ratio 14.8 (10.0-20.0); Blood Urea Nitrogen 19 mg/dL (9-23); Calcium 9.5 mg/dL (8.5-10.1); Carbon Dioxide 23 mmol/L (20-30); Chloride 108 mmol/L (98-107); Potassium 3.5 mmol/L (3.5-5.1); Sodium 141 mmol/L (136-145); Triglycerides 464 mg/dL (< 150)
[2023-05-09 04:28] LABS: Bilirubin, Total 0.8 mg/dL (0.2-1.0); Total Protein 6.9 g/dL (5.7-8.2)
[2023-05-09 04:36] LABS: Glucose 161 mg/dL (74-106)
[2023-05-09] MEDS: D5W/SOD CHL 0.45% 1,000 ML IV SCH ×3 (07:35→20:55)
[2023-05-09] MEDS: GEMFIBROZIL 600 MG TAB PO SCH ×2 (10:24→22:31)
[2023-05-09] MEDS: ENOXAPARIN SOD 30 MG/0.3 ML SYRINGE SC SCH (10:24)
[2023-05-09] MEDS: INSULIN LANTUS (GLARGINE) 1 /0.01ml (100units/ml) SC SCH (10:27)
[2023-05-10] VITALS (15 sets, daily range): BP systolic 103–123; BP diastolic 48–77; PULSE 80–93; RESP 14–27; TEMP 98.2–98.9; O2SAT 92–100
[2023-05-10] MEDS: ACCU-CHEK COMFORT CURVE STRIP VI SCH ×9 (01:30→17:37)
[2023-05-10 04:19] LABS: Basophils # (auto) 0 10 ^3/uL (0-0.2); Eosinophils # (auto) 0.1 10 ^3/uL (0-0.8); Lymphocytes # (auto) 1.2 10 ^3/uL (0.4-5.4); Monocytes # (auto) 0.6 10 ^3/uL (0-1.3)
[2023-05-10 04:20] LABS: Basophils % (auto) 0.2 % (0.0-2.0); Eosinophils % (auto) 1.5 % (0.0-7.0); Hematocrit 34.9 % (41.0-53.0); Hemoglobin 11.4 g/dL (13.5-17.5); Lymphocytes % (auto) 15.1 % (10.0-50.0); Mean Corpuscular Hemoglobin 26.1 pg (28.0-32.0); Mean Corpuscular Hgb Conc. 32.8 g/dL (32.0-36.0); Mean Corpuscular Volume 79.5 fL (80.0-100.0); Monocytes % (auto) 7.5 % (0.0-12.0); Neutrophils # (auto) 5.9 10 ^3/uL (1.6-8.6); Neutrophils % (auto) 75.7 % (37.0-80.0); Red Blood Cells 4.39 10^6/uL (4.5-5.90); White Blood Cell 7.8 10^3/uL (4.4-10.8)
[2023-05-10 04:30] LABS: Alanine Aminotransferase 22 U/L (7-40); Albumin 4.2 g/dL (3.2-4.8); Alkaline Phosphatase 74 U/L (46-116); Anion Gap 9 (5-15); Aspartate Aminotransferase 18 U/L (13-40); BUN/Creatinine Ratio 14.2 (10.0-20.0); Bilirubin, Total 1.1 mg/dL (0.2-1.0); Blood Urea Nitrogen 16 mg/dL (9-23); Calcium 9.5 mg/dL (8.7-10.4); Carbon Dioxide 24 mmol/L (20-30); Chloride 103 mmol/L (98-107); Glucose 176 mg/dL (74-106); Lipase 54 U/L (12-53); Potassium 3.4 mmol/L (3.5-5.1); Sodium 136 mmol/L (136-145); Total Protein 7.2 g/dL (5.7-8.2)
[2023-05-10 05:58] LABS: Triglycerides 464 mg/dL (< 150)
[2023-05-10] MEDS: D5W/SOD CHL 0.45% 1,000 ML IV SCH (06:32)
[2023-05-10] MEDS ORDERED: POTASSIUM CHLORIDE 20 MEQ, LIDOCAINE 1% (LOCAL ANESTH.) 2 ML in SODIUM CHL 0.9% 100 ML IV ONE (08:15)
[2023-05-10 08:54] LABS: % Iron Saturation 12.1 % (20-55)
[2023-05-10] MEDS: ENOXAPARIN SOD 40 MG/0.4 ML SYRINGE SC SCH (09:19)
[2023-05-10] MEDS: GEMFIBROZIL 600 MG TAB PO SCH ×2 (09:25→21:52)
[2023-05-10] MEDS: INSULIN LANTUS (GLARGINE) 1 /0.01ml (100units/ml) SC SCH (09:25)
[2023-05-10] MEDS ORDERED: POTASSIUM EFFERVESENT TAB 25 MEQ PO ONE (09:30)
[2023-05-10] MEDS: InsuLIN REG 1unit/0.01ml Soln (100units/ml) SC SCH ×2 (12:12→17:36)
[2023-05-11] MEDS: ACCU-CHEK COMFORT CURVE STRIP VI SCH ×3 (00:12→12:45)
[2023-05-11] MEDS: InsuLIN REG 1unit/0.01ml Soln (100units/ml) SC SCH ×3 (00:15→12:22)
[2023-05-11 05:00] VITALS: BP 123/75; PULSE 86; RESP 19; TEMP 97.8; O2SAT 100
[2023-05-11 06:52] LABS: Basophils # (auto) 0 10 ^3/uL (0-0.2); Basophils % (auto) 0.3 % (0.0-2.0); Eosinophils # (auto) 0.1 10 ^3/uL (0-0.8); Eosinophils % (auto) 1.2 % (0.0-7.0); Hematocrit 35.6 % (41.0-53.0); Hemoglobin 11.9 g/dL (13.5-17.5); Lymphocytes # (auto) 1.3 10 ^3/uL (0.4-5.4); Lymphocytes % (auto) 18.1 % (10.0-50.0); Mean Corpuscular Hemoglobin 26.4 pg (28.0-32.0); Mean Corpuscular Hgb Conc. 33.4 g/dL (32.0-36.0); Mean Corpuscular Volume 79.1 fL (80.0-100.0); Monocytes # (auto) 0.6 10 ^3/uL (0-1.3); Monocytes % (auto) 8.2 % (0.0-12.0); Neutrophils # (auto) 5.2 10 ^3/uL (1.6-8.6); Neutrophils % (auto) 72.2 % (37.0-80.0); Red Cell Distribution Width 17.7 % (11.8-14.3); White Blood Cell 7.1 10^3/uL (4.4-10.8)
[2023-05-11] MEDS ORDERED: INSULIN LANTUS (GLARGINE) 1 /0.01ml (100units/ml) SC SCH (07:00)
[2023-05-11 07:12] LABS: Alanine Aminotransferase 19 U/L (7-40); Albumin 4.4 g/dL (3.2-4.8); Alkaline Phosphatase 85 U/L (46-116); Anion Gap 9 (5-15); Blood Urea Nitrogen 14 mg/dL (9-23); Carbon Dioxide 25 mmol/L (20-30); Chloride 101 mmol/L (98-107); Glucose 203 mg/dL (74-106); Potassium 3.4 mmol/L (3.5-5.1); Sodium 135 mmol/L (136-145); Triglycerides 346 mg/dL (< 150)
[2023-05-11 07:13] LABS: Aspartate Aminotransferase 18 U/L (13-40)
[2023-05-11 07:14] LABS: Bilirubin, Total 0.8 mg/dL (0.2-1.0); Total Protein 7.2 g/dL (5.7-8.2)
[2023-05-11 07:28] LABS: Lipase 64 U/L (12-53)
[2023-05-11 08:00] VITALS: BP 105/67; PULSE 85; PULSE 87; RESP 14; TEMP 97.9; O2SAT 96
[2023-05-11 09:00] VITALS: BP 105/67; PULSE 87; RESP 14; TEMP 97.9; O2SAT 96
[2023-05-11] MEDS ORDERED: POTASSIUM EFFERVESENT TAB 25 MEQ PO ONE (09:30)
[2023-05-11] MEDS ORDERED: GEMF-66 PO (10:18)
[2023-05-11] MEDS ORDERED: METF-372 PO (10:18)
[2023-05-11] MEDS ORDERED: GLIM4TAB PO (10:18)
[2023-05-11] MEDS ORDERED: BLOO-200 XX (10:20)
[2023-05-11] MEDS: ENOXAPARIN SOD 40 MG/0.4 ML SYRINGE SC SCH (10:22)
[2023-05-11] MEDS: GEMFIBROZIL 600 MG TAB PO SCH (10:22)
[2023-05-11 12:46] VITALS: BP 121/79; PULSE 83; RESP 16; TEMP 97.9; O2SAT 98
[2023-05-11 13:02] VITALS: BP 105/67; PULSE 87; RESP 14; TEMP 97.9; O2SAT 96
== END 2023-05-11 15:20 | disposition home or self-care (01) | DRG 440 ==
LOC: ER 09:11 → OVERFLOW 12:54 → EAST 22:39 → ICU WEST 05-08 19:26 → TELE-WESTW 05-10 14:28
PROVIDERS: ADMIT Internal Medicine; ATTEND Internal Medicine
DX: K85.90 Acute pancreatitis without necrosis or infection, unspecified (principal); E78.5 Hyperlipidemia, unspecified; K76.0 Fatty (change of) liver, not elsewhere classified; E78.1 Pure hyperglyceridemia; E11.9 Type 2 diabetes mellitus without complications; Z98.84 Bariatric surgery status; Z88.0 Allergy status to penicillin; Z88.8 Allergy status to other drugs, medicaments and biological substances; Z83.3 Family history of diabetes mellitus
CPT/HCPCS: 36415; 36600; 74176; 80053; 80061; 81001; 82010; 82805; 82962; 83036; 83540; 83550; 83690; 84478; 84484; 85025; 87040; 87081; 93005; C9113; G0378; J1815; J1885; J2001; J2405

== ENCOUNTER 2024-04-24 12:50 | Inpatient (IN) | payer OTHER ==
[~2024-04-24] VITALS: Ht 180.3 cm; Wt 111.3 kg
[~2024-04-24 12:50] MED LIST changes: +BLOO-200 XX; +GEMF-66 PO; +GLIM4TAB PO; -METF-370 PO; +METF-372 PO
[2024-04-24] MEDS: MAALOX PLUS or MAALOX 30 ML PO ONE (13:15)
--- NOTE | 2024-04-24 13:26 | ED.PDOC ---
GI ASSESSMENT HPI Comments 49Y M with PMHx DM, HLD, pancreatitis, and asthma presents to ED for chief complaint abd pain x today with n/v/d. Pt states his blood sugar and cholesterol are probably high as well. Pt states he ate fatty/greasy food last night. Chief Complaint: Abdominal Pain Time Seen by MD: 13:06 Primary Care Provider: unknown Reviewed Notes: Nurses Notes, Medications, Allergies Allergies: Coded Allergies: Iodine (Verified Allergy, Unknown, 10/01/21) Penicillins (Verified Allergy, Unknown, 06/16/22) Interview date: 06/10/2022: Patient reported taking Amoxicillin (PO route) at young adult time with no allergic reaction. Home Meds Active Scripts Blood Glucose Monitoring Suppl (Blood Glucose Monitoring W/Device) 1 Kit Kit, KIT XX, #1 Prov:SIMEON CANALES MD 05/11/23 Gemfibrozil (Gemfibrozil) 600 Mg Tab, 600 MG PO Q12HR, #60 TAB 5 Refills Prov:SIMEON CANALES MD 05/11/23 Glimepiride (Amaryl) 4 Mg Tab, 1 TAB PO BID, #60 TAB 5 Refills Prov:SIMEON CANALES MD 05/11/23 Metformin Hydrochloride (Metformin Hcl) 1,000 Mg Tab, 1 TAB PO BID, #60 TAB 5 Refills Prov:SIMEON CANALES MD 05/11/23 Pantoprazole Sodium Sesquihydr (Protonix) 40 Mg Tab, 40 MG PO DAILY for 30 Days, #30 TAB Prov:MEG MONTILLA MD 10/05/21 Information Source: Patient Mode of Arrival: Ambulatory Timing: Hours Duration: Since onset Quality: Sharp Vomitus: Watery Stool: Loose Severity: Mild Recent: None Recent Hx of: None Pain Location: LUQ, LLQ Modifying Factors: Nothing Associated sign and symptoms: Nausea, Vomiting, Diarrhea, Abdominal Pain Past Medical History PAST MEDICAL HISTORY: Asthma, DM, High Lipids Surgical History: Denies all surgeries Family History Family History: Family hx of DM Social History Smoker: Non-Smoker Alcohol: Denies ETOH Use Drugs: Denies Drug Use Lives In: Home Constitutional: denies: chills, diaphoresis, fatigue, fever, malaise, sweats, weakness, others EENTM: denies: blurred vision, double vision, ear bleeding, ear discharge, ear drainage, ear pain, ear ringing, eye pain, eye redness, hearing loss, mouth pain, mouth swelling, nasal discharge, nose bleeding, nose congestion, nose pain, photophobia, tearing, throat pain, throat swelling, voice changes, others Respiratory: denies: cough, hemoptysis, orthopnea, SOB at rest, shortness of breath, SOB with excertion, stridor, wheezing, others Cardiovascular: denies: chest pain, dizzy spells, diaphoresis, Dyspnea on exertion, edema, irregular heart beat, left arm pain, lightheadedness, palpitations, PND, syncope, others Gastrointestinal: reports: abdominal pain, diarrhea, nausea, vomiting; denies: abdomen distended, blood streaked bowels, constipated, dysphagia, difficulty swallowing, hematemesis, melena, poor appetite, poor fluid intake, rectal bleeding, rectal pain, others Genitourinary: denies: burning, dysuria, flank pain, frequency, hematuria, incontinence, penile discharge, penile sore, pain, testicle pain, testicle swelling, urgency, others Neurological: denies: dizziness, fainting, headache, left sided numbness, left sided weakness, numbness, paresthesia, pre-existing deficit, right sided numbness, right sided weakness, seizure, speech problems, tingling, tremors, weakness, others Musculoskeletal: denies: back pain, gout, joint pain, joint swelling, muscle pain, muscle stiffness, neck pain, others Integumetry: denies: bruises, change in color, change in hair/nails, dryness, laceration, lesions, lumps, rash, wounds, others Allergic/Immunocompromised: denies: Difficulty Healing, Frequent Infections, Hives, Itching, others Hematologic/Lymphatic: denies: anemia, blood clots, easy bleeding, easy bruising, swollen glands, others Endocrine: denies: excessive hunger, excessive sweating, excessive thirst, excessive urination, flushing, intolerance to cold, intolerance to heat, unexplained weight gain, unexplained weight loss, others Psychiatric: denies: anxiety, bipolar disorder, depression, hopeless, panic disorder, schizophrenia, sleepless, suicidal, others All Other Systems: Reviewed and Negative Physical Exam General Appearance: No Apparent Distress, Normal HEENT: Normal ENT Inspection, Pharynx Normal, TMs Normal Neck: Full Range of Motion, Non-Tender, Normal, Normal Inspection Respiratory: Chest Non-Tender, Lungs Clear, No Accessory Muscle Use, No Respir atory Distress, Normal Breath Sounds Cardiovascular: No Edema, No JVD, No Murmur, No Gallop, Normal Peripheral Pulses, Regular Rate/Rhythm Breast Exam: Deferred Gastrointestinal: No Organomegaly, Non Tender, No Pulsatile Mass, Normal Bowel Sounds, Soft Genitalia: Deferred Pelvic: Deferred Rectal: Deferred Extremities: No calf tenderness, Normal capillary refill, Normal inspection, Normal range of motion, Non-tender, No pedal edema Musculoskeletal : Apperance: Normal Neurologic: Alert, foundry patternmaker II-XII nml as Tested, No Motor Deficits, Normal Affect, Normal Mood, No Sensory Deficits Cerebellar Function: NOT DONE Reflexes: NOT DONE Skin: Dry, Normal Color, Warm Lymphatic: No Adenopathy Was a procedure done? Was a procedure done?: No GI differential Dx Differential Diagnosis: Gastroenteritis, Pancreatitis, UTI, Urolithiasis, Dehydration, Electrolyte Imbalance, Viral X-Ray, Labs, Meds, VS Vital Signs Date Time Temp Pulse Resp B/P (MAP) Pulse Ox O2 Delivery O2 Flow Rate FiO2 04/24/24 13:09 97.4 85 18 130/87 (101) 97 Lab Test 04/24/24 16:37 Range/Units White Blood Count 11.2 H 4.4-10.8 10^3/uL Red Blood Count 5.09 4.5-5.90 10^6/uL Hemoglobin 15.8 13.5-17.5 g/dL Hematocrit 40.9 L 41.0-53.0 % Mean Corpuscular Volume 80.3 80.0-100.0 fL Mean Corpuscular Hemoglobin 27.6 L 28.0-32.0 pg Mean Corpuscular Hemoglobin Concent 33.9 32.0-36.0 g/dL Red Cell Distribution Width 16.9 H 11.8-14.3 % Platelet Count 372 140-450 10^3/uL Mean Platelet Volume 7.9 6.9-10.8 fL Neutrophils (%) (Auto) 88.1 H 37.0-80.0 % Lymphocytes (%) (Auto) 6.3 L 10.0-50.0 % Monocytes (%) (Auto) 4.6 0.0-12.0 % Eosinophils (%) (Auto) 0.1 0.0-7.0 % Basophils (%) (Auto) 0.9 0.0-2.0 % Neutrophils # (Auto) 9.9 H 1.6-8.6 10 ^3/uL Lymphocytes # (Auto) 0.7 0.4-5.4 10 ^3/uL Monocytes # (Auto) 0.5 0-1.3 10 ^3/uL Eosinophils # (Auto) 0 0-0.8 10 ^3/uL Basophils # (Auto) 0.1 0-0.2 10 ^3/uL Nucleated Red Blood Cells 0.3 % Sodium Level 136 136-145 mmol/L Potassium Level 5.6 *H 3.5-5.1 mmol/L Chloride Level 102 98-107 mmol/L Carbon Dioxide Level 23 20-31 mmol/L Anion Gap 11 5-15 Blood Urea Nitrogen 14 9-23 mg/dL Creatinine 1.38 H 0.700-1.30 mg/dL Glomerular Filtration Rate Calc 63 >90 mL/min BUN/Creatinine Ratio 10.1 10.0-20.0 Serum Glucose 309 H 74-106 mg/dL Calcium Level 10.7 H 8.7-10.4 mg/dL Total Bilirubin 1.1 H 0.2-1.0 mg/dL Aspartate Amino Transferase (AST) 89 H 13-40 U/L Alanine Aminotransferase (ALT) 53 H 7-40 U/L Alkaline Phosphatase 80 46-116 U/L Total Protein 8.1 5.7-8.2 g/dL Albumin 5.3 H 3.2-4.8 g/dL Lipase Pending Current Medications Medications (Trade) Dose Ordered Sig/Hilda Route Start Time Stop Time Status Last Admin Al Hydrox/Mg Hydrox/Simethicone (Maalox Plus) 15 ml ONCE ONCE PO 04/24/24 13:15 04/24/24 13:16 DC 04/24/24 13:[address] [address] Ph: [phone] DIAGNOSTIC IMAGING Diagnostic Imaging Report : [id number] Signed PATIENT: RICKY HART ACCT: [id number] UNIT: [id number] : 1975 LOC: ER ROOM / BED: / AGE / SEX: 49 / M ADM STATUS: REG ER SERVICE 1308 ORDERING PHYSICIAN: ROX CAMPBELL MD PROCEDURE(s): CXR2 - CHEST TWO VIEWS ROUTINE REASON: epigastric pain ORDER NUMBER(s): [id number], ACCESSION NUMBER(s): [id number] XY CHEST TWO VIEWS ROUTINE CLINICAL HISTORY: epigastric pain COMPARISON: None TECHNIQUE: Frontal and lateral view of the chest was obtained FINDINGS: Lines and Tubes: None Lungs: No focal consolidation. Pleura: No effusion. No pneumothorax. Cardiomediastinal contours: Unremarkable Bones: No acute osseous abnormality. IMPRESSION: 1. No radiographic evidence of acute cardiopulmonary disease. HS:Y ATED BY: ABIODUN VINCENT DO DICTATED DATE/TIME: 04/24/241328 SIGNED BY: ABIODUN VINCENT DO SIGNED DATE/TIME: 04/24/241328 CC: Time of 1ST Reevaluation: 13:36 Reevaluation 1ST: Unchanged Patient Education/Counseling: Diagnosis, Treatment Family Education/Counseling: No Family Present Departure 1 Departure Time of Disposition: 18:14 (Patient with hyperkalemia and inability to tolerate p.o. when severe abdominal pain concerning for pancreatitis. We will treat patient for hyperkalemia and admit patient for further workup) Impression: Primary Impression: Hyperkalemia Additional Impression: Intractable abdominal pain Disposition: ADMITTED INPATIENT Admit to: Med Surg Condition: Serious Discharged With: Self Critical Care Note Critical Care Time?: Yes Critical care comment: Intractable abdominal pain Authorized and Performed by: Rox Campbell MD Total critical care time: Approximately 33 minutes Due to a high probability of clinically significant, life threatening deterioration, the patient required my highest level of preparedness to intervene emergently and I personally spent this critical care time directly and personally managing the patient. This critical care time included obtaining a history; examining the patient; pulse oximetry; ordering and review of studies; arranging urgent treatment with development of a management plan; evaluation of patient's response to treatment; frequent reassessment; and, discussions with other providers. This critical care time was performed to assess and manage the high probability of imminent, life-threatening deterioration that could result in multi-organ failure. It was exclusive of separately billable procedures and treating other patients and teaching time. Please see my other sections and the rest of the note for further information on patient assessment and treatment. Stability Stability form required: No Heart Score Heart Score: Heart Score Response (Comments) Value History N/A 0 EKG N/A 0 Age N/A 0 Risk Factors N/A 0 Troponin N/A 0 Total 0 I personally scribed for ROX CAMPBELL MD ([facility]) on 04/24/24 at 13:26. Electronically submitted by Tomasa Aragon ([facility] I personally scribed for ROX CAMPBELL MD ([facility]) on 04/24/24 at 16:35. Electronically submitted by Tomasa Aragon ([facility]). ROX CAMPBELL MD Apr 24, 2024 13:26
--- NOTE | 2024-04-24 13:31 | DVH ---
XY CHEST TWO VIEWS ROUTINE CLINICAL HISTORY: epigastric pain COMPARISON: None TECHNIQUE: Frontal and lateral view of the chest was obtained FINDINGS: Lines and Tubes: None Lungs: No focal consolidation. Pleura: No effusion. No pneumothorax. Cardiomediastinal contours: Unremarkable Bones: No acute osseous abnormality. IMPRESSION: 1. No radiographic evidence of acute cardiopulmonary disease. HS:Y
[2024-04-24 17:05] LABS: Basophils # (auto) 0.1 10 ^3/uL (0-0.2); Basophils % (auto) 0.9 % (0.0-2.0); Eosinophils # (auto) 0 10 ^3/uL (0-0.8); Nucleated Red Blood Cells % 0.3 %; White Blood Cell 11.2 10^3/uL (4.4-10.8)
[2024-04-24 17:07] LABS: Eosinophils % (auto) 0.1 % (0.0-7.0); Hematocrit 40.9 % (41.0-53.0); Lymphocytes # (auto) 0.7 10 ^3/uL (0.4-5.4); Lymphocytes % (auto) 6.3 % (10.0-50.0); Mean Corpuscular Volume 80.3 fL (80.0-100.0); Monocytes # (auto) 0.5 10 ^3/uL (0-1.3); Monocytes % (auto) 4.6 % (0.0-12.0); Neutrophils # (auto) 9.9 10 ^3/uL (1.6-8.6); Neutrophils % (auto) 88.1 % (37.0-80.0); Platelet Count (auto) 372 10^3/uL (140-450); Red Blood Cells 5.09 10^6/uL (4.5-5.90); Red Cell Distribution Width 16.9 % (11.8-14.3)
[2024-04-24 17:34] LABS: Hemoglobin 15.8 g/dL (13.5-17.5); Mean Corpuscular Hemoglobin 27.6 pg (28.0-32.0); Mean Corpuscular Hgb Conc. 33.9 g/dL (32.0-36.0)
[2024-04-24 17:58] LABS: Alkaline Phosphatase 80 U/L (46-116); Anion Gap 11 (5-15); Bilirubin, Total 1.1 mg/dL (0.2-1.0); Carbon Dioxide 23 mmol/L (20-31); Chloride 102 mmol/L (98-107); Total Protein 8.1 g/dL (5.7-8.2)
[2024-04-24 18:07] LABS: Alanine Aminotransferase 53 U/L (7-40); Albumin 5.3 g/dL (3.2-4.8); Blood Urea Nitrogen 14 mg/dL (9-23)
[2024-04-24 18:11] LABS: Aspartate Aminotransferase 89 U/L (13-40); BUN/Creatinine Ratio 10.1 (10.0-20.0); Calcium 10.7 mg/dL (8.7-10.4); Glucose 309 mg/dL (74-106); Potassium 5.6 mmol/L (3.5-5.1); Sodium 136 mmol/L (136-145)
[2024-04-24 20:59] LABS: Lipase 396 U/L (12-53)
[2024-04-24] MEDS ORDERED: ONDANSETRON HCL 4 MG/2 ML VIAL IV PRN (22:00)
--- NOTE | 2024-04-24 22:07 | DVHHPRES ---
History of Present Illness Resident Creating Document: BRITANY JAMA RESIDENT History of Present Illness This is a 49-year-old male with past medical history of pancreatitis, hyperlipidemia, type 2 diabetes mellitus, bronchial asthma presented to the ED with a chief complaint of severe abdominal pain, nausea ,vomiting and diarrhea for 1 day prior to this admission. The patient states that abdominal pain which started yesterday which was sharp pain located in the epigastric region ,12/31 ,radiates diffusely all over the upper abdomen and also to the back, aggravated by eating fatty foods without any relieving factors and associated with nausea and few episodes of vomiting and diarrhea. He also mentioned that he had previous pancreatitis 2 times in the past and he was admitted in the hospital for more than 10 days. The patient denies chest pain, shortness of breath, dizziness, diaphoresis, dysuria, hematuria, melena, sick contact or any change in bowel movement. Past Medical History Pancreatitis, hyperlipidemia, type 2 DM, bronchial asthma Past Surgical History None Family History Cancer runs in the family Past Social History Lives with family Nonsmoker, non alcoholic and never tried any drugs. Review of Systems Constitutional: No: Fever, Chills, Sweats, Weakness, Malaise, Other Eyes: No: Pain, Vision change, Conjunctivae inflammation, Eyelid inflammation, Other, Redness ENT: No: Ear pain, Ear discharge, Nose pain, Nose discharge, Nose congestion, Mouth pain, Mouth swelling, Throat pain, Throat swelling, Other Respiratory: No: Cough, Dry, Shortness of breath, SOB with excertion, Wheezing, Hemoptysis, Pleuritic Pain, Sputum, Wheezing, Other Cardiovascular: No: Chest Pain, Palpitations, Orthopnea, Paroxysmal Noc. Dyspnea, Edema, Lt Headedness, Other Gastrointestinal: Nausea, Vomiting, Abdominal Pain, Diarrhea; No: Constipation, Melena, Hematochezia, Other Genitourinary: No Dysuria, No Frequency, No Incontinence, No Hematuria, No Retention, No Other Musculoskeletal: No: other, neck pain, shoulder pain, arm pain, back pain, hand pain, leg pain, foot pain Skin: No: Rash, Lesions, Jaundice, Bruising, Other Neurological: No: Weakness, Numbness, Incoordination, Change in speech, Confusion, Seizures, Other Allergies: Coded Allergies: Iodine (Verified Allergy, Unknown, 10/01/21) Penicillins (Verified Allergy, Unknown, 06/16/22) Interview date: 06/10/2022: Patient reported taking Amoxicillin (PO route) at young adult time with no allergic reaction. Medications Current Medications Medications Dose Ordered Sig/Hilda Route Start Time Stop Time Status Last Admin Dose Admin Lactated Ringer's 1,000 ml @ 125 mls/hr Q8H IV 04/24/24 22:00 UNV Pantoprazole Sodium 40 mg DAILY IV 04/25/24 10:00 UNV Morphine Sulfate 2 mg Q4HPRN PRN IV 04/24/24 22:00 UNV Ondansetron HCl 4 mg Q4HPRN PRN IV 04/24/24 22:00 UNV Exam Vital Signs Vital Signs Date Time Temp Pulse Resp B/P (MAP) Pulse Ox O2 Delivery O2 Flow Rate FiO2 04/24/24 13:09 97.4 85 18 130/87 (101) 97 Exam Physical examination: General Appearance: Alert, Oriented X3, Cooperative, No acute distress HEENT: Atraumatic, PERRLA, EOMI, Mucous membrane moist/pink Respiratory: Clear to auscultation, Normal air movement Cardiovascular: Regular rate, Normal S1, Normal S2, No murmurs, no chest wall tenderness Abdominal: Tenderness in the epigastric region, Normal bowel sounds, Soft, No tenderness, No hepatospenomegaly, No masses Extremities: No clubbing, No cyanosis, No edema, Normal pulses, No tenderness/swelling Skin: No rashes, No breakdown, No significant lesion Neuro: Normal gait, Normal speech, Strength at 5/5 X4 ext, Normal tone, Sensation intact, grossly intact cranial nerves. Psych/Mental Status: Mental status NL, Mood NL Labs/Xrays Labs Test 04/24/24 21:42 04/24/24 16:37 Range/Units White Blood Count 11.2 H 4.4-10.8 10^3/uL Red Blood Count 5.09 4.5-5.90 10^6/uL Hemoglobin 15.8 13.5-17.5 g/dL Hematocrit 40.9 L 41.0-53.0 % Mean Corpuscular Volume 80.3 80.0-100.0 fL Mean Corpuscular Hemoglobin 27.6 L 28.0-32.0 pg Mean Corpuscular Hemoglobin Concent 33.9 32.0-36.0 g/dL Red Cell Distribution Width 16.9 H 11.8-14.3 % Platelet Count 372 140-450 10^3/uL Mean Platelet Volume 7.9 6.9-10.8 fL Neutrophils (%) (Auto) 88.1 H 37.0-80.0 % Lymphocytes (%) (Auto) 6.3 L 10.0-50.0 % Monocytes (%) (Auto) 4.6 0.0-12.0 % Eosinophils (%) (Auto) 0.1 0.0-7.0 % Basophils (%) (Auto) 0.9 0.0-2.0 % Neutrophils # (Auto) 9.9 H 1.6-8.6 10 ^3/uL Lymphocytes # (Auto) 0.7 0.4-5.4 10 ^3/uL Monocytes # (Auto) 0.5 0-1.3 10 ^3/uL Eosinophils # (Auto) 0 0-0.8 10 ^3/uL Basophils # (Auto) 0.1 0-0.2 10 ^3/uL Nucleated Red Blood Cells 0.3 % Sodium Level 136 136-145 mmol/L Chloride Level 102 98-107 mmol/L Carbon Dioxide Level 23 20-31 mmol/L Anion Gap 11 5-15 Blood Urea Nitrogen 14 9-23 mg/dL Creatinine 1.38 H 0.700-1.30 mg/dL Glomerular Filtration Rate Calc 63 >90 mL/min BUN/Creatinine Ratio 10.1 10.0-20.0 Serum Glucose 309 H 74-106 mg/dL Calcium Level 10.7 H 8.7-10.4 mg/dL Total Bilirubin 1.1 H 0.2-1.0 mg/dL Aspartate Amino Transferase (AST) 89 H 13-40 U/L Alanine Aminotransferase (ALT) 53 H 7-40 U/L Alkaline Phosphatase 80 46-116 U/L Total Protein 8.1 5.7-8.2 g/dL Albumin 5.3 H 3.2-4.8 g/dL Lipase 396 H 12-53 U/L Assessment/Plan Assessment/Plan Assessment and plan: # Acute pancreatitis likely secondary to hypertriglyceridemia - Lipase is elevated - U/S of abdomen revealed gallbaldder sludge - Ordered lipid panel and CT abdomen pelvis without contrast - Hold lactated ringer's as patient is hyperkalemic - IV Normal saline at 125 ml/hr. - IV ondansetron 4 mg q.4 p.r.n. - IV morphine 2 mg q.4 p.r.n. # Hyperkalemia - Hyperkalemia protocol management - Lokelma 10 mg p.o. b.i.d. for 48 hours - monitor BMP # FORTINO secondary to hemodynamically mediated/BUN - FENA 0.8% - IV normal saline at 125 mL/hours - Monitor BMP # Hypercalcemia likely due to dehydration - IV normal saline at 125 mL/hours # Vitamin D deficiency - Vitamin D 73302 unit Q 7D # Uncontrolled type 2 diabetes mellitus, HbA1C 8.9% - Started lantus 20 unit Q AM and moderate sliding scale of insulin. # Hyperbilirubinemia with transaminitis - Monitor CMP # PUD prophylaxis - Protonix 40 mg IV daily. # DVT prophylaxis - Not recommended as patient is mobile Goal of care discussed with the patient for more than 20 minutes full code Plan discussed with Dr. Jama Plan discussed with: Patient, Other My Orders Orders - BRITANY JAMA RESIDENT Procedure Category Date Status Time Admit ADMIT 04/24/24 Transmitted 21:25 Starter Mechanic For WICHO 04/24/24 In Process 24 Hours 21:25 Lactated Ringer's PHA 04/24/24 Logged 22:00 Pantoprazole PHA 04/25/24 Logged (Protonix) 10:00 Morphine Sulfate PHA 04/24/24 Logged Injection 22:00 Ondansetron Hcl PHA 04/24/24 Logged (Zofran) 22:00 Npo (Nothing By DIET 04/25/24 Transmitted Mouth) Diet Breakfast Thyroid Stimulating LAB 04/24/24 Logged Hormone 22:00 Hemoglobin A1c LAB 04/24/24 Logged 22:00 Ct Ab Pel Wo Con-No CT 04/24/24 Logged Oral Or Iv 22:00 Abdomen Complete US 04/24/24 Logged Sonogram 22:00 BRITANY JAMA RESIDENT Apr 24, 2024 22:07
[2024-04-24 22:37] LABS: INR 1.03 (0.9-1.15); Partial Thromboplastin Time 26.5 SEC (24.5-34.5); Prothrombin Time 10.9 sec (9.3-11.8)
[2024-04-24] MEDS ORDERED: DEXTROSE (50%) 50ML SYRG IV PRN (23:15)
[2024-04-24] MEDS: ALBUTEROL SULF 2.5 MG/0.5ML(0.5%) NEB SOLN NEB ONE (23:37)
[2024-04-24 23:55] VITALS: O2SAT 93
--- NOTE | 2024-04-25 00:12 | DVH ---
INDICATION: Rule out cholelithiasis TECHNIQUE: Multiple real-time sonographic images of the abdomen were obtained. COMPARISON: KIDUS on DOS: 06/06/22, ABDL on DOS: 10/03/21, ABDOMEN LIMITED on DOS: 10/03/21 FINDINGS: The liver is heterogenous in echogenicity. The liver measures 18cm. No intrahepatic biliar y ductal dilatation is noted. The gallbladder wall measures 0.3 cm and is unremarkable. gallbladder sludge is seen. CBD not seen The right kidney measures 11cm. No hydronephrosis. The pancreas is not well visualized due to obscuration from bowel gas. The visualized portions of the IVC and aorta are grossly unremarkable. IMPRESSION: gallbaldder sludge.
[2024-04-25] MEDS: DEXTROSE (50%) 50ML SYRG IV ONE ×2 (00:14→00:18)
[2024-04-25] MEDS: CALCIUM GLUC 1,000mg/50ml-NS 50 ML IV SCH (00:15)
[2024-04-25] MEDS: InsuLIN REG 1unit/0.01ml Soln (100units/ml) IV ONE ×2 (00:15→00:20)
[2024-04-25] MEDS: SODIUM BICARB 8.4% 50Meq/50ml SYR Vial IV ONE (00:15)
[2024-04-25] MEDS: LACTATED RINGER'S 1,000 ML IV SCH (00:19)
[2024-04-25] MEDS: SODIUM BICARB 8.4% 50Meq/50ml SYR INJ IV ONE (00:23)
[2024-04-25] MEDS: SODIUM ZIRCONIUM CYCL 10 GM PAK PO ONE (00:28)
[2024-04-25] MEDS: FUROSEMIDE 20 MG/2 ML VIAL IV ONE (00:32)
[2024-04-25] MEDS: ONDANSETRON HCL 4 MG/2 ML VIAL IV ONE (00:33)
[2024-04-25] MEDS: MORPHINE SULFATE 4 MG/ML SYR/VIAL IV ONE (00:35)
[2024-04-25] MEDS: SODIUM CHLORIDE 0.9% 1,000 ML IV SCH (00:49)
[2024-04-25] MEDS ORDERED: DEXTROSE (50%) 50ML SYRG IV PRN (01:45)
[2024-04-25 02:11] LABS: Sodium Urine 44 mmol/L (40-220)
[2024-04-25] MEDS: InsuLIN REG 1unit/0.01ml Soln (100units/ml) SC SCH (02:12)
[2024-04-25 02:16] LABS: Protein, Urine 45.1 mg/dL (1-14)
[2024-04-25 02:18] LABS: Opiate Scree,Urine Neg (NEGATIVE)
[2024-04-25 02:19] LABS: Amphetamine Screen, Urine Neg (NEGATIVE); Barbiturate Scree,Urine Neg (NEGATIVE); Benzodiazephine Screen, Urine Neg (NEGATIVE); Cannabinoid Screen, Urine Neg (NEGATIVE); Cocaine Screen, Urine Neg (NEGATIVE); Creatinine, Urine 57.27 mg/dL (30.0-125.0); Phencyclidine Screen, Urine Neg (NEGATIVE)
--- NOTE | 2024-04-25 04:08 | DVH ---
Exam: CT CT AB PEL WO CON-NO ORAL OR IV History: Abdominal pain Comparison Study: CT of the abdomen pelvis dated 05/07/2023. Technique: Multidetector spiral CT of the abdomen and pelvis was performed from lung bases to pubic s ymphysis. Imaging was performed without intravenous contrast. Coronal and sagittal multiplanar refor mats were obtained from the axial data set by the technologist. Radiation Dose : 1. Abdomen/Pelvis: CTDIvol 16.93 mGy, DLP 1027.45 mGy*cm. Findings: Evaluation of vasculature and solid organs is limited due to lack of intravenous contrast use. Lung Bases: Lung bases are clear. Visualized portions of the heart and pericardium are unremarkable. Liver: The liver is normal in size. No focal lesions. Hepatic steatosis. Gallbladder and Biliary Tree: The gallbladder is unremarkable. No intrahepatic or extrahepatic bilia ry ductal dilatation. Spleen: Unremarkable Pancreas: There is extensive peripancreatic fat stranding. Adrenal Glands: Unremarkable Kidneys: Kidneys are unremarkable without calculi or hydronephrosis. GI tract: The stomach is grossly normal in appearance. No evidence of small bowel wall thickening or abnormal dilatation to suggest bowel obstruction. There is a surgical anastomosis in the sigmoid col on.. The appendix is visualized and is normal. Peritoneum/mesentery/retroperitoneum. No evidence of free intraperitoneal air. No ascites. No evidenc e of suspicious lymphadenopathy. Abdominal Wall: Unremarkable. Vasculature: The visualized abdominal aorta is normal in size and caliber. Evaluation of abdominal a nd pelvic vessels is limited due to lack of intravenous contrast. Urinary Bladder: Grossly unremarkable for degree of distention. Pelvic Organs: Unremarkable Musculoskeletal: No aggressive focal bony lesions, acute fractures or dislocation. IMPRESSION: 1. Acute interstitial pancreatitis. No organized fluid collection. 2. Hepatic steatosis.
[2024-04-25] MEDS: INSULIN LANTUS (GLARGINE) 1 /0.01ml (100units/ml) SC SCH (04:19)
[2024-04-25 04:37] LABS: Basophils # (auto) 0 10 ^3/uL (0-0.2); Basophils % (auto) 0.4 % (0.0-2.0); Eosinophils # (auto) 0 10 ^3/uL (0-0.8); Hematocrit 38.4 % (41.0-53.0); Hemoglobin 13.2 g/dL (13.5-17.5); Lymphocytes # (auto) 0.5 10 ^3/uL (0.4-5.4); Lymphocytes % (auto) 4.7 % (10.0-50.0); Mean Corpuscular Hemoglobin 27.2 pg (28.0-32.0); Mean Corpuscular Hgb Conc. 34.3 g/dL (32.0-36.0); Mean Corpuscular Volume 79.3 fL (80.0-100.0); Monocytes # (auto) 0.5 10 ^3/uL (0-1.3); Neutrophils # (auto) 9.7 10 ^3/uL (1.6-8.6); Neutrophils % (auto) 89.9 % (37.0-80.0); Platelet Count (auto) 330 10^3/uL (140-450); Red Blood Cells 4.85 10^6/uL (4.5-5.90); Red Cell Distribution Width 17.5 % (11.8-14.3); White Blood Cell 10.8 10^3/uL (4.4-10.8)
[2024-04-25 04:58] LABS: Alanine Aminotransferase 29 U/L (7-40); Albumin 4.6 g/dL (3.2-4.8); Alkaline Phosphatase 72 U/L (46-116); Anion Gap 11 (5-15); Aspartate Aminotransferase 28 U/L (13-40); BUN/Creatinine Ratio 15.4 (10.0-20.0); Blood Urea Nitrogen 16 mg/dL (9-23); Calcium 10.4 mg/dL (8.7-10.4); Carbon Dioxide 24 mmol/L (20-31); Chloride 99 mmol/L (98-107)
[2024-04-25 04:59] LABS: Sodium 134 mmol/L (136-145); Total Protein 6.6 g/dL (5.7-8.2)
[2024-04-25 05:00] VITALS: TEMP 98.9
[2024-04-25 05:01] LABS: Glucose 410 mg/dL (74-106)
[2024-04-25] MEDS: MORPHINE SULFATE INJ 2 MG/ml SYRG IV PRN (05:08)
[2024-04-25] MEDS: SODIUM ZIRCONIUM CYCL 10 GM PAK PO SCH (05:51)
[2024-04-25] MEDS: ERGOCALCIFEROL 50,000 UNIT(1.25MG) CAP PO SCH (05:51)
[2024-04-25 06:10] LABS: Cholesterol 185 mg/dL (< 200)
[2024-04-25 06:13] LABS: HDL Cholesterol 23 mg/dL (40-59); Triglycerides 727 mg/dL (< 150)
[2024-04-25] MEDS: ACCU-CHEK COMFORT CURVE STRIP VI SCH (06:38)
[2024-04-25] MEDS ORDERED: INSULIN LANTUS (GLARGINE) 1 /0.01ml (100units/ml) SC SCH (07:00)
[2024-04-25] MEDS ORDERED: ACCU-CHEK COMFORT CURVE STRIP VI SCH (07:00)
[2024-04-25] MEDS ORDERED: InsuLIN REG 1unit/0.01ml Soln (100units/ml) SC SCH ×2 (07:00→22:00)
[2024-04-25 07:12] LABS: COVID19 ANTIGEN SOFIA FIA NEGATIVE (NEGATIVE)
[2024-04-25 07:13] LABS: Rapid Influenza A Negative (Negative); Rapid Influenza B Negative (Negative)
[2024-04-25 08:00] VITALS: BP 112/70
[2024-04-25 09:32] VITALS: PULSE 104; RESP 18; O2SAT 93
[2024-04-25] MEDS ORDERED: ATORVASTATIN 20 MG TAB PO ONE (09:45)
[2024-04-25] MEDS ORDERED: PANTOPRAZOLE 40 MG/10 ML VIAL INJ IV SCH (10:00)
[2024-04-25] MEDS ORDERED: SODIUM CHLORIDE 0.9% 500 ML IV ONE (10:00)
[2024-04-25] MEDS ORDERED: GEMFIBROZIL 600 MG TAB PO SCH (10:15)
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
[2024-04-25] MEDS ORDERED: ATORVASTATIN 20 MG TAB PO SCH (22:00)
== END 2024-04-25 09:58 | disposition left against medical advice (07) | DRG 438 ==
LOC: ER 12:50 → TELE 21:25
PROVIDERS: ADMIT Student in an Organized Health Care Education/Training Program; ATTEND Student in an Organized Health Care Education/Training Program
DX: K85.80 Other acute pancreatitis without necrosis or infection (principal); N17.0 Acute kidney failure with tubular necrosis; R65.10 Systemic inflammatory response syndrome (SIRS) of non-infectious origin without acute organ dysfunction; E87.5 Hyperkalemia; J45.909 Unspecified asthma, uncomplicated; Z53.29 Procedure and treatment not carried out because of patient's decision for other reasons; E86.0 Dehydration; E78.5 Hyperlipidemia, unspecified; E11.9 Type 2 diabetes mellitus without complications; E80.6 Other disorders of bilirubin metabolism; R74.01 Elevation of levels of liver transaminase levels; E78.1 Pure hyperglyceridemia; E86.9 Volume depletion, unspecified; E83.52 Hypercalcemia; K76.0 Fatty (change of) liver, not elsewhere classified; D50.9 Iron deficiency anemia, unspecified; E66.9 Obesity, unspecified; Z83.3 Family history of diabetes mellitus; Z68.34 Body mass index [BMI] 34.0-34.9, adult; Z79.4 Long term (current) use of insulin; Z79.899 Other long term (current) drug therapy
CPT/HCPCS: 36415; 71046; 74176; 76705; 80053; 80061; 80307; 80320; 82306; 82570; 83036; 83690; 84132; 84156; 84300; 84443; 85025; 85610; 85730; 87426; 87804; 94640; 99291; G0378